=== PATIENT | female | born 1970 | race African-American/Black ===

== ENCOUNTER 2025-04-18 19:23 | Emergency (ER) | payer BC, MEDICAID ==
[~2025-04-18] VITALS: Ht 167.6 cm; Wt 76.0 kg
[2025-04-18 19:24] VITALS: O2SAT 95
[2025-04-18] MEDS: LIDOCAINE HCL/EPINEPHRINE 1%-EPI 1:100,000 20ML VIAL INFIL ONE (20:00)
[2025-04-18] MEDS: BACITRACIN ZINC OINT UDPKT TOP ONE (20:00)
[2025-04-18] MEDS: ACETAMINOPHEN 325MG TABLET PO ONE (20:58)
[2025-04-18] MEDS: TETANUS, DIPHTHERIA, PERTUSSIS VAC/PF 0.5ML (>10YR OLD) IM ONE (20:59)
[2025-04-18] MEDS: KETOROLAC 30MG/ML VIAL IM ONE (23:02)
[2025-04-18 23:10] VITALS: BP 133/78; PULSE 63; RESP 16; TEMP 36.5; O2SAT 100
== END 2025-04-18 23:10 | disposition home or self-care (01) ==
LOC: ER 19:23
DX: S01.81XA Laceration without foreign body of other part of head, initial encounter (principal); I10 Essential (primary) hypertension; Z98.890 Other specified postprocedural states; W22.8XXA Striking against or struck by other objects, initial encounter; Y93.89 Activity, other specified; Y92.89 Other specified places as the place of occurrence of the external cause; Y99.8 Other external cause status
CPT/HCPCS: 70450; 90715; 12013; 90471; 96372; 99285; J1885; J2004; Z7610 ×3

== ENCOUNTER 2025-04-25 10:27 | Emergency (ER) | payer BC, MEDICAID ==
[~2025-04-25] VITALS: Ht 165.1 cm; Wt 65.0 kg
[2025-04-25 10:35] VITALS: O2SAT 99
[2025-04-25 12:23] VITALS: BP 157/91; PULSE 73; RESP 16; TEMP 36.8; O2SAT 100
== END 2025-04-25 12:24 | disposition home or self-care (01) ==
LOC: ER 10:27
DX: S01.91XD Laceration without foreign body of unspecified part of head, subsequent encounter (principal); I10 Essential (primary) hypertension; Z48.02 Encounter for removal of sutures; Z98.890 Other specified postprocedural states; X58.XXXD Exposure to other specified factors, subsequent encounter
CPT/HCPCS: 99281; Z7610